=== PATIENT | female | born 1955 | race African-American/Black ===

== ENCOUNTER 2019-04-16 13:39 | Emergency (ER) | payer MEDICARE, MEDICAID ==
[~2019-04-16] VITALS: Ht 172.7 cm; Wt 72.0 kg
[2019-04-16] MEDS ORDERED: KETOROLAC 60MG/2ML VIAL IM ONE (15:30)
[2019-04-16] MEDS ORDERED: DEXAMETHASONE 10 MG/ML VIAL IM ONE (15:30)
[2019-04-16 16:10] VITALS: BP 112/68
== END 2019-04-16 16:10 | disposition home or self-care (01) ==
LOC: ER 14:57
DX: M54.30 Sciatica, unspecified side (principal); E11.9 Type 2 diabetes mellitus without complications; I10 Essential (primary) hypertension; I25.2 Old myocardial infarction; F17.210 Nicotine dependence, cigarettes, uncomplicated; E78.00 Pure hypercholesterolemia, unspecified; Z86.73 Personal history of transient ischemic attack (TIA), and cerebral infarction without residual deficits; Z98.61 Coronary angioplasty status
CPT/HCPCS: 96372; 99283; J1100; J1885

== ENCOUNTER 2019-04-26 10:59 | Emergency (ER) | payer MEDICARE, MEDICAID ==
[~2019-04-26] VITALS: Ht 172.7 cm; Wt 75.0 kg
[2019-04-26] MEDS: KETOROLAC 60MG/2ML VIAL IM STA ×2 (12:19→12:29)
[2019-04-26 12:29] VITALS: BP 139/54
== END 2019-04-26 12:37 | disposition home or self-care (01) ==
LOC: ER 10:59
DX: M54.41 Lumbago with sciatica, right side (principal); I10 Essential (primary) hypertension; E11.9 Type 2 diabetes mellitus without complications; I25.2 Old myocardial infarction; E78.00 Pure hypercholesterolemia, unspecified; Z86.73 Personal history of transient ischemic attack (TIA), and cerebral infarction without residual deficits
CPT/HCPCS: 99283; J1885

== ENCOUNTER 2019-05-19 10:39 | Emergency (ER) | payer MEDICARE, MEDICAID ==
[~2019-05-19] VITALS: Ht 172.7 cm; Wt 75.0 kg
[2019-05-19 10:43] VITALS: BP 187/88
== END 2019-05-19 11:37 | disposition left against medical advice (07) ==
LOC: ER 10:39
DX: Z53.21 Procedure and treatment not carried out due to patient leaving prior to being seen by health care provider (principal); F17.200 Nicotine dependence, unspecified, uncomplicated